=== PATIENT | male | born 1950 | race Caucasian/White ===

== ENCOUNTER 2017-10-30 18:10 | Inpatient (IN) | payer OTHER, MEDICARE ==
[~2017-10-30] VITALS: Ht 167.6 cm; Wt 84.8 kg
--- NOTE | 2017-10-30 19:11 | CT SCAN REPORT ---
EXAMINATION: CT HEAD WITHOUT CONTRAST CLINICAL INFORMATION: Confusion. COMPARISON: None. TECHNIQUE: Contiguous axial imaging was performed from the skull base to vertex without intravenous administration of contrast. DLP: 618 mGy-cm. FINDINGS: There is no intracranial hemorrhage, large infarction, or mass lesion. There is no extra-axial collection. The ventricles are normal in size and configuration without evidence of hydrocephalus. There is mild scattered hypoattenuation in the bilateral cerebral white matter, which is nonspecific but likely reflects small vessel disease. The paranasal sinuses are clear. The mastoids and middle ear cavities are clear. There are atherosclerotic calcification of the carotid siphons and vertebral arteries. IMPRESSION: No acute intracranial abnormality.
[2017-10-30 19:40] LABS: ABSOLUTE BASOPHIL COUNT 0 /CUMM (0.0-0.2); ABSOLUTE EOSINOPHIL COUNT 0.2 /CUMM (0.0-0.7); ABSOLUTE LYMPH COUNT 1.4 /CUMM (1.2-3.4); ABSOLUTE MONOCYTE COUNT 0.3 /CUMM (0.10-0.60); BASOPHIL % 0.1 % (0.0-2.0); EOSINOPHIL % 3.2 % (0-5); GRANULOCYTE % 67.1 % (42.2-75.2); HEMATOCRIT 40.6 % (42-52); MEAN CORPUSCULAR HGB 34.9 PG (27.0-31.0); MEAN CORPUSCULAR HGB CONC 34.2 G/DL (33.0-37.0); MEAN CORPUSCULAR VOLUME 101.9 FL (80.0-94.0); MEAN PLATELET VOLUME 7.8 FL (7.4-10.4); PLATELET COUNT 74 /CUMM (130-400); RBC DISTRIBUTION WIDTH 14.5 % (11.5-14.5); RED BLOOD CELL CT 3.98 /CUMM (4.70-6.10); WHITE BLOOD CELL COUNT 5.9 /CUMM (4.8-10.8)
--- NOTE | 2017-10-30 19:43 | RADIOLOGY REPORT ---
EXAMINATION: XR CHEST CLINICAL INFORMATION: Confusion COMPARISON: 07/02/2018 TECHNIQUE: 2 views of the chest were obtained. FINDINGS: Low lung volumes. There is diffuse prominence of the pulmonary interstitium. No focal consolidation or mass. No pleural effusion or pneumothorax. Heart size is upper limits of normal likely accentuated by low lung volumes. No acute osseous abnormality. IMPRESSION: There is new, diffuse interstitial prominence. This can be seen acutely with bronchiolitis or interstitial pneumonitis, chronically with chronic bronchitis or reactive airways disease.
[2017-10-30 19:49] LABS: PT 14.7 SEC (9.4-12.5); PTT 35 SEC (25-37)
--- NOTE | 2017-10-30 21:02 | History & Physical ---
Mony Chavira MD 10/30/172100: General Information and HPI MD Statement: I have seen and personally examined CORI WILSON and documented this H&P. The patient is a 67 year old M who presented with a patient stated chief complaint of altered mental status Source of Information: patient, old records Exam Limitations: no limitations History of Present Illness: This is a 67-year-old male with a past medical history significant for diabetes on metformin and glipizide, cirrhosis secondary to alcoholism with TIPS placed in 2011 secondary to portal hypertension with upper GI bleed, thrombocytopenia found at the same time, arthritis that is brought in from home by his for complaints of "acting funny". All history is taken from the patient himself who was a clear historian and remembered all preceding events. The patient states that he tried this morning to put tissue paper on his feet like socks. He also states that he tried eating a banana with the peel on. The patient states that he has never had anything like this before. The patient states that he feels like he has a "foggy brain". He also states that he went to his PCPs office today, Dr. Shane and she told him that his blood sugar was 415. He denies headache, vertigo, loss of consciousness, falls, seizure activity, tremors, vision change, hearing change, neurological deficits anywhere in the body, nausea, vomiting, fever, chills, abdominal pain, diarrhea or constipation, chest pain, shortness of breath. While the patient states that he has no dysuria or hematuria, he states that he thinks he is urinating less "probably because I'm drinking less". The patient states that he is on a protein restricted diet due to his liver problems but that a few days ago he ate a hamburger with cheese. The patient states that for his back pain he takes Aleve "some days of the week ". He denies any overt GI bleed. The patient states that he gets yearly ultrasounds of the liver to check if his shunt is still in the correct position. He last got it checked 6 months ago. He follows with sewer pipe layer helper Dr. العلي. The patient denies ever having had ascitic fluid drained from his abdomen, no gall bladder or pancreatic issues. The patient was evaluated for a heart murmur by Dr. العلي tomato paste maker in 2015. He found a normal size left ventricle, ejection fraction estimated at 60% , stage II diastolic dysfunction, no aortic stenosis. Patient has no other cardiac history. The patient used to heavily drink alcohol but stopped 10 years ago when the liver problems began. He used to smoke half a pack a day until 1996 but hasn't smoked since. The patient denies any drug use. Allergies/Medications Allergies: Coded Allergies: No Known Allergies (10/30/17) Past History Travel History Traveled to [place] past 21 day No Medical History Neurological: NONE EENT: NONE Cardiovascular: NONE Respiratory: NONE Gastrointestinal: NONE Hepatic: NONE, TIPS PROCEDURE,SHUNTS Renal: NONE Musculoskeletal: NONE Psychiatric: NONE Endocrine: diabetes Surgical History Surgical History: TIPS Past Family/Social History Family History Relations & Conditions if any *No pertinent family history Relation not specified Heart attack FATHER, Onset: 40-50. Psychosocial History Services at Home: None Functional Ability ADLs Independent: dressing, eating, toileting, bathing. Review of Systems Review of Systems Constitutional: Reports: no symptoms. EENTM: Reports: no symptoms. Cardiovascular: Reports: no symptoms. Respiratory: Reports: no symptoms. GI: Reports: no symptoms. Genitourinary: Reports: see HPI. Musculoskeletal: Reports: back pain. Skin: Reports: no symptoms. Neurological/Psychological: Reports: confusion. Hematologic/Endocrine: Reports: no symptoms. Immunologic/Allergic: Reports: no symptoms. All Other Systems: Reviewed and Negative Exam & Diagnostic Data Last 24 Hrs of Vital Signs/I&O Vital Signs Date Time Temp Pulse Resp B/P B/P Pulse O2 O2 Flow FiO2 Mean Ox Delivery Rate 10/30 2322 97.8 76 20 145/77 97 Room Air 10/30 2239 98.5 82 18 155/80 96 Room Air 10/30 2106 97.8 77 18 153/78 98 Room Air 10/30 1826 95.9 85 18 176/79 99 Room Air Intake & Output 10/31 0800 10/31 0000 10/30 1600 Intake Total 0 Output Total Balance 0 Intake, Oral 0 Patient 190 lb Weight Physical Exam General Appearance Alert, Oriented X3, Cooperative, No Acute Distress Skin No Rashes, No Breakdown, No Significant Lesion Skin Temp/Moisture Exam: Warm/Dry Sepsis Skin Exam (color): Normal for Ethnicity HEENT Atraumatic, PERRLA, EOMI, Mucous Membr. moist/pink Neck Supple, No JVD Cardiovascular Regular Rate, Normal S1, Normal S2, left lower sternal border murmur 4/6 systolic Lungs Clear to Auscultation, Normal Air Movement Abdomen Normal Bowel Sounds, Soft, No Tenderness, No Hepatospenomegaly, No Masses Neurological Normal Speech, Strength at 5/5 X4 Ext, Normal Tone, Sensation Intact, Cranial Nerves 3-12 NL, NO ASTERIXIS Extremities No Clubbing, No Cyanosis, No Edema, Normal Pulses, No Tenderness/ Swelling Vascular Normal Pulses Sepsis Peripheral Pulse Location: Radial Sepsis Peripheral Pulse Exam: Normal Sepsis Cap Refill Exam: <2 Sec Last 24 Hrs of Labs/Frac[place]: Laboratory Tests 10/31/17 0135: Troponin I < 0.01 10/30/17 194: Urine Opiates Screen < 100, Methadone Screen < 40, Barbiturate Screen < 60, Ur Phencyclidine Scrn < 6.00, Amphetamines Screen < 100, U Benzodiazepines Scrn < 85, Urine Cocaine Screen < 50, Urine Cannabis Screen < 5.00, Urine Color YEL, Urine Clarity HAZY H, Urine pH 6.0, Ur Specific [place] 1.015, Urine Protein NEG, Urine Ketones NEG, Urine Nitrite NEG, Urine Bilirubin NEG, Urine Urobilinogen 4.0 H, Ur Leukocyte Esterase NEG, Ur Microscopic SEDIMENT EXAMINED , Urine RBC RARE, Urine WBC RARE, Ur Epithelial Cells RARE, Urine Bacteria MANY H, Urine Mucus RARE, Urine Hemoglobin NEG, Urine Glucose >=1000 H 10/30/17 192: Anion Gap 9, Estimated GFR > 60, BUN/Creatinine Ratio 22.0, Glucose 233 H, Calcium 10.0, Total Bilirubin 3.8 H, AST 48, ALT 38, Alkaline Phosphatase 126, Ammonia 50 H, Troponin I < 0.01, Total Protein 7.5, Albumin 3.7, Globulin 3.8, Albumin/Globulin Ratio 1.0 L, Amylase 61, Lipase 615 H, PT 14.7 H, INR 1.34 H, APTT 35, CBC w Diff NO MAN DIFF REQ, RBC 3.98 L, MCV 101.9 H, MCH 34.9 H, MCHC 34.2, RDW 14.5, MPV 7.8, Gran % 67.1, Lymphocytes % 24.1, Monocytes % 5.5, Eosinophils % 3.2, Basophils % 0.1, Absolute Granulocytes 4.0, Absolute Lymphocytes 1.4, Absolute Monocytes 0.3, Absolute Eosinophils 0.2, Absolute Basophils 0 Assessment/Plan Assessment: This is a 67-year-old male with a past medical history significant for diabetes on metformin and glipizide, cirrhosis secondary to alcoholism with TIPS placed in 2011 secondary to portal hypertension with upper GI bleed, thrombocytopenia found at the same time, arthritis that is brought in from home by his for complaints of "acting funny". The patient has no complaints other than feeling "confused and woozy". He has never had anything happen like this before. The patient states that he is supposed to be on a protein restriction diet but that he ate a cheeseburger 2 days ago. In the ED: vitals were stable except for elevated but pressure to 176/79 which decreased to 145/77 after intake. Labs show WBC of 5.9, slightly low hemoglobin of 13.9, MCV 101.9, platelets 74, troponin negative, glucose 233, creatinine 0.5 , INR 1.34, total bilirubin 3.8, normal AST, ALT, alkaline phosphatase, amylase 61, lipase 6:15, ammonia level 50, urinalysis showing positive glucose. U tox was negative. EKG showed a rate of 72, QTC 465, no evidence of acute coronary syndrome, QRS of 140 that was increased from last EKG QRS 100. Chest x-ray showed diffuse interstitial prominence, evidence of bronchiolitis or interstitial pneumonitis, or bronchitis/reactive airway disease. CT head was normal. NIH stroke scale negative. Differential diagnosis and discussion: Causes of altered mental status include hyper or/hyponatremia, glucose derangements, hypercalcemia, hypo-/ hyperthyroidism, hypoxia or hypercapnia, uremia, drug intoxication, Warnicke's encephalopathy, CVA, structural lesions, infections, hypertensive encephalopathy and vasculitis, arrhythmias and hepatic encephalopathy. This patient has normal kidney function, no electrolyte abnormalities, and normal calcium level, no evidence of hypoxia or hypercapnia, no uremia, negative tox screen, no evidence of acute pathology. CT head, no evidence of infection, nonhypertensive blood pressure, no evidence of arrhythmia although widening of the QRS complex which could be suggestive of increasing left ventricular hypertrophy as a mild degree was found on his last echo in 2014. Warnicke's encephalopathy is probably unlikely as patient states that he has not drank in some time and has no ophthalmoplegia or ataxia. Most likely cause is hepatic encephalopathy as patient's ammonia level is high and he reports not adhering to his low protein diet. SBP is unlikely as a precipitant of the hepatic encephalopathy as no ascites is appreciated on exam, patient is afebrile, no abdominal tenderness, no nausea or vomiting. Patient's MELD score is 15 corresponding to 6% estimated 3 month mortality. The patient's lipase is elevated but is under 3 times the upper limit of normal, not significant at this time. Patient's [place] Criteria score is 1 at the time of interview, 2 taking into account HPI, for Grade I-II Hepatic Encephalopathy. Plan Hepatic encephalopathy secondary to alcoholic cirrhosis: -Neurochecks every 8 -Lactulose 20 g 3 times a day when necessary with a target of 2-3 bowel movements per day -Patient is deferring abdominal ultrasound (to check for TIPS positioning) for cost issues - was last checked 6 months ago -GI consult will be deferred as well for cost issues -Guaiac stools -Follow up LFTs and lipase -Give folate and B12 -Consider TFTs if encephalopathy returns or worsens QRS widening: In setting of supraventricular rhythm. No evidence of bundle branch block but could be left ventricular hypertrophy as mild hypertrophy was seen in 2015 echo. No hyperkalemia. No evidence of Ioohx-Impejlbjb-Uayou pattern. Repeat troponin at 1:30 AM was negative, EKG unchanged. -Follow up with EKG and troponin one last time at 7:30 AM Chronic medical problems -Insulin sliding scale and Accu-Cheks for diabetes, consider HbA1c Patient is full code DVT prophylaxis with Alps Patient is nothing by mouth As Ranked By This Provider Problem List: 1. Hepatic encephalopathy syndrome 2. Diabetes mellitus Core Measures/Misc (05/11) Acute Coronary Syndrome ACS Diagnosis: No Congestive Heart Failure Congestive Heart Failure Diagnosis No Cerebrovascular Accident CVA/TIA Diagnosis: No VTE (View Protocol) VTE Risk Factors No risk factors No Mechanical VTE Prophylaxis d/t N/A MechProphylax Ordered No VTE Pharm Prophylaxis d/t Other Sepsis (View protocol) Sepsis Present: No Gabi Tomlinson 10/30/17 4487: General Information and HPI Allergies/Medications Home Med list Cholecalciferol (Vitamin D3) (Vitamin D3) 5,000 UNIT TABLET 0.5 TAB PO DAILY SUPPLEMENT (Reported) Glipizide 5 MG TABLET 2 TAB PO QAM DM (Reported) Glipizide 5 MG TABLET 1 TAB PO QPM DM (Reported) Metformin HCl 500 MG TABLET 1 TAB PO BID DM (Reported) Naproxen Sodium (Aleve) 220 MG CAPSULE 1 CAP PO BID PRN PAIN/INFLAMMATION ( Reported) Resident Review Statement Resident Statement: examined this patient, discussed with legal summer intern, agreed with legal summer intern, discussed with family, reviewed EMR data (avail), discussed with nursing , reviewed images Other Findings: Mr. Wilson is a 67 yp man with PMHx. of alcoholic cirrhosis status post TIPS procedure years ago(more than 10 years), diabetes, thrombocytopenia, portal gastropathy, hiatal hernia, and external hemorrhoids presented to emergency department with a complaint of increase confusion. History obtained from the patient himself, he was able to answer our questions properly, he reports that today he was confused, doing unusual behavior, he reports that he is on diet restriction(low protein diet) the other day he had cheeseburger which he think precipitated all of his symptoms today, for TIPS he has annual checkup with an ultrasound to check if the shunt is working, last time it was checked was 6 months ago with no issue. He noticed that his urine is more concentrated and smell funny He denies any increase in abdominal distention, no nausea, vomiting, no chest pain, no shortness of breath, no fever, chills, no bowel habits. We'll admit the patient to general medicine floor, GI consult at a.m., he was received lactulose at a.m. Will continue lactulose with a target of 2-3 bowel movements per day, we discussed with the patient the need for an abdominal ultrasound and he said I don't want to pay more money for ultrasound, will repeat his labs tomorrow including LFT, and lipase. Insulin sliding scale, Accu -Chek, U tox, DVT prophylaxis SCD Lovenox, he is a full code Sorin Yan 10/31/17 0429: Attending MD Review Statement Attending Statement Attending MD Statement: examined this patient, discuss w/resident/PA/DAIRY LAB TECHNICIAN, agreed w/resident/PA/DAIRY LAB TECHNICIAN, reviewed EMR data (avail), reviewed images, amended to note Attending Assessment/Plan: CC: Confusion, abnormal behavior PMH: Decompensated alcoholic cirrhosis with history of variceal bleed S/P TIPS, ex-alcoholic, DM Patient was brought in ER by his for abnormal activity. According to her patient began to act abnormal this morning, wrapping up toilet paper around his feet, stating that "it's my underwear". Patient's thought it might be his low blood sugar, initially they did not check blood sugar at home but he ate breakfast. Later on when he went out to [facility] [place] and came back, he did not recall how to deal a banana, patient appeared more confused later in the day his blood sugar was checked it was 450. Patient denies any blood in the vomiting, black colored stool or blood in the stool, abdominal distention, fever, chills, urinary burning, URI symptoms, diarrhea, vomiting, chest pain, cough or expectoration. He ate a burger 2 days back which he was not supposed to eat as he is on low protein diet. He feels little foggy but otherwise no other complaints. He has been compliant with his glipizide and metformin at home. His cirrhosis has been under control, no symptoms so far after TIPS. Vitals: Afebrile, pulse 80s, RR 18, blood pressure 176/79, saturating 99% on room air On exam: A O 3, slow to respond, no asterixis, cooperative, no acute distress, neck supple, JVD normal, no lymphadenopathy, mucosa moist, no focal neurological deficit, no dependent edema, no obvious skin rashes or inflammation CVS: S1-S2, RRR, systolic murmur. RS: Clear to auscultate bilaterally. Abdomen: Soft, NT, ND , bowel sounds present. CXR: There is new, diffuse interstitial prominence. This can be seen acutely with bronchiolitis or interstitial pneumonitis, chronically with chronic bronchitis or reactive airways disease. CT head: No acute intracranial abnormality Assessment and plan 67-year-old male with past medical history significant for Decompensated alcoholic cirrhosis with history of variceal bleed S/P TIPS, ex-alcoholic, DM presented in ER for confusion and abnormal behavior as noticed by patient's . Other than having a burger 2 days back there is no apparent changes in patient's lifestyle or symptoms. Patient appears oriented in time place and person, recalls all minor details from the past, cognition appears intact, but slow to respond. He does not have asterixis on examination and other examination unremarkable. He has chronic thrombocytopenia with macrocytosis, elevated bilirubin, hyperglycemia and elevated ammonia. He appears to have hepatitic encephalopathy, new onset, never had similar symptoms in the past. Precipitating factor for encephalopathy is unclear, should rule out ascites, SBP, GI bleed or any other infection. Patient received a dose of lactulose in ER . Patient requests not to see sewer pipe layer helper while in hospital, he will follow-up outpatient. MELD score 15. + Hepatic encephalopathy + History of decompensated alcoholic cirrhosis S/P TIPS, no history of ascites, chronic thrombocytopenia, elevated bilirubin and INR + History of DM with hyperglycemia, previous hemoglobin A1c 9.25 February 2017 - Admit to general medicine - Continue by mouth lactulose, titrate according to bowel movement - Neurochecks - Abdominal ultrasound - Stool is guaiac - DVT prophylaxis with Alps only : Thrombocytopenia - Continue sliding scale insulin, hold oral hypoglycemic - Avoid NSAIDS - outpatient GI F/u
[2017-10-30] MEDS ORDERED: METFORMIN HCL500 M3 PO (21:19)
[2017-10-30] MEDS ORDERED: GLIPIZIDE5 M2 PO ×2 (21:19→21:59)
[2017-10-30] MEDS ORDERED: ALEVE220 M1 PO (21:20)
--- NOTE | 2017-10-30 21:53 | ED AMS/SEIZURE/WEAK/DIZZY ---
History of Present Illness General Chief Complaint: General Adult Stated Complaint: HEPATIC ENCEPHALOPATHY Source: patient, family, old records Exam Limitations: clinical condition, confusion Vital Signs & Intake/Output Vital Signs & Intake/Output Vital Signs Date Time Temp Pulse Resp B/P B/P Pulse O2 O2 Flow FiO2 Mean Ox Delivery Rate 10/30 2321 97.8 76 20 145/77 97 Room Air 10/309 98.5 82 18 155/80 96 Room Air 10/30 2106 97.8 77 18 153/78 98 Room Air 10/30 1826 95.9 85 18 176/79 99 Room Air Allergies Coded Allergies: No Known Allergies (10/30/17) Reconcile Medications Cholecalciferol (Vitamin D3) (Vitamin D3) 5,000 UNIT TABLET 0.5 TAB PO DAILY SUPPLEMENT (Reported) Glipizide 5 MG TABLET 2 TAB PO QAM DM (Reported) Glipizide 5 MG TABLET 1 TAB PO QPM DM (Reported) Metformin HCl 500 MG TABLET 1 TAB PO BID DM (Reported) Naproxen Sodium (Aleve) 220 MG CAPSULE 1 CAP PO BID PRN PAIN/INFLAMMATION ( Reported) Triage Note: PT FROM HOME C/O ABNORMAL ACTIVITY. PT TO ER WITH , PER , PT IS A DIABETIC AND AWOKE TODAY AROUND 0700 AMBULATED TO THE BATHROOM CAME BACK TO BED AND BEGAN TO ACT ABNORMAL BY WRAPPING TOILET PAPER AROUND HIS FEET STATING "ITS MY UNDERWEAR" PTS THOUGHT IT WAS A LOW BSG, NEVER CHECKED, THEN PT ATE BREAKFAST, WENT OUT TO SHOVEL, CAME BACK IN FOR LUNCH AND THEN FORGOT HOW TO OPEN A BANANA AND BEGAN TO EAT IT WITH THE PEEL ON. PT IS NEGATIVE FOR NIH STROKE SCALE. PT A&0X3. PTS STATES PT USED TO BE AN ALCOHOLIC AND HAD A TIPS PROCEDURE PLACING SHUNTS IN LIVER. PT DENIES CP, SOB. PT HAS CIRRHOSIS. VSS. SATYA Springer IN TRIAGE FOR EVAL. Triage Nurses Notes Reviewed? yes Onset: Morning Duration: hour(s):, constant, continues in ED Timing: recent history Severity: moderate No Modifying Factors: none HPI: 1 day prior to admission spouse reports patient began to have confused activity. The morning she found him sitting on the toilet wrapping toilet paper around his feet saying he was putting his underwear on. He then forgot several times about drinking his coffee and had to be reminded. At lunch he was attempting to eat a banana forgot how to open the skin and tried to bite through it. Later they were going out she told him to put his socks on and he put his feet into gloves. He denies fever chills nausea vomiting diarrhea abdominal pain chest pain cough shortness of breath headache dysuria rash bleeding. Past History Travel History Traveled to [place] past 21 day No Medical History Any Pertinent Medical History? see below for history Neurological: NONE EENT: NONE Cardiovascular: NONE Respiratory: NONE Gastrointestinal: NONE Hepatic: NONE, TIPS PROCEDURE,SHUNTS Renal: NONE Musculoskeletal: NONE Psychiatric: NONE Endocrine: diabetes Surgical History Surgical History: TIPS Psychosocial History Who do you live with Spouse Services at Home None What is your primary language Arabic Tobacco Use: Quit >30 days ago Family History Hx Contributory? No Review of Systems Review of Systems Constitutional: Reports: no symptoms. EENTM: Reports: no symptoms. Respiratory: Reports: no symptoms. Cardiovascular: Reports: no symptoms. GI: Reports: no symptoms. Genitourinary: Reports: no symptoms. Musculoskeletal: Reports: no symptoms. Skin: Reports: no symptoms. Neurological/Psychological: Reports: see HPI, cognitive dysfunction, confusion. Hematologic/Endocrine: Reports: no symptoms. Immunologic/Allergic: Reports: no symptoms. All Other Systems: Reviewed and Negative Physical Exam Physical Exam General Appearance: well developed/nourished, alert, awake, anxious, mild distress Head: atraumatic, normal appearance Eyes: Bilateral: normal appearance, PERRL, EOMI. Ears, Nose, Throat: normal pharynx, normal ENT inspection, hearing grossly normal Neck: normal inspection, supple, full range of motion, no midline tenderness Respiratory: normal breath sounds, chest non-tender, no respiratory distress, quiet respiration, lungs clear Cardiovascular: regular rate/rhythm, normal peripheral pulses, norml femoral pulses equa Peripheral Pulses: 4+ carotid (R), 4+ carotid (L) Gastrointestinal: normal bowel sounds, soft, non-tender, no organomegaly Back: normal inspection, normal range of motion Extremities: normal range of motion, no ligament instability Neurologic/Psych: no motor/sensory deficits, awake, alert, oriented x 3, normal gait, normal mood/affect, confused thoughts and forgetfulness Reflexes: 2+: bicep (R), bicep (L). Skin: intact, normal color, warm/dry Lymphatic: no anterior cervical mable Core Measures ACS in differential dx? No CVA/TIA Diagnosis No Sepsis Present: No Sepsis Focused Exam Completed? No Progress Differential Diagnosis: CVA/stroke, dehydration, drug intoxication, electrolyte imbalance, hypoglycemia, intracranial Hem. Plan of Care: Orders Procedure Date/time Status Nothing by Mouth 10/31 B Active CBC WITHOUT DIFFERENTIAL 10/31 599 Active BASIC ELECTROLYTES PLUS BUN&CR 10/31 599 Active Saline Lock 10/30 2117 Active Pathway - chart 10/30 2117 Active House Staff 10/30 2117 Active Add-on Test (ER Only) 10/30 2102 Active Patient Data 10/30 2050 Active OXYGEN SETUP (GEN) 10/30 2036 Active Saline Lock 10/30 2036 Active Admit to inpatient 10/30 2036 Active Vital Signs 10/30 2036 Active Activity/Ambulation 10/30 2036 Active Code Status 10/30 2036 Active Intake & Output 10/30 1950 Active URINE DRUGS OF ABUSE 10/30 194 Complete URINALYSIS 10/30 1832 Complete TROPONIN LEVEL 10/30 1832 Complete PARTIAL THROMBOPLASTIN TIME 10/30 1832 Complete PROTHROMBIN TIME 10/30 1832 Complete AMMONIA 10/30 1832 Complete LIPASE 10/30 1832 Complete COMPREHENSIVE METABOLIC PANEL 10/30 1832 Complete CBC WITHOUT DIFFERENTIAL 10/30 1832 Complete AMYLASE 10/30 1832 Complete EKG 10/30 1832 Active VTE Mechanical Prophylaxis 10/30 UNK Active Hemoccult 10/30 UNK Active FingerStick- Glucose 10/30 UNK Active Current Medications Sig/Sarah Start time Last Medication Dose Stop Time Status Admin Enoxaparin Sodium 40 MG DAILY 10/31 1000 AC (Lovenox) Insulin Aspart 0 TIDAC 10/31 0800 AC (NovoLOG) Lactulose 20 GM TID PRN 10/30 2130 AC (Enulose 20GM/30ML) Laboratory Tests 10/30/17 1942: Urine Opiates Screen < 100, Methadone Screen < 40, Barbiturate Screen < 60, Ur Phencyclidine Scrn < 6.00, Amphetamines Screen < 100, U Benzodiazepines Scrn < 85, Urine Cocaine Screen < 50, Urine Cannabis Screen < 5.00, Urine Color YEL, Urine Clarity HAZY H, Urine pH 6.0, Ur Specific [place] 1.015, Urine Protein NEG, Urine Ketones NEG, Urine Nitrite NEG, Urine Bilirubin NEG, Urine Urobilinogen 4.0 H, Ur Leukocyte Esterase NEG, Ur Microscopic SEDIMENT EXAMINED , Urine RBC RARE, Urine WBC RARE, Ur Epithelial Cells RARE, Urine Bacteria MANY H, Urine Mucus RARE, Urine Hemoglobin NEG, Urine Glucose >=1000 H 10/30/173: Anion Gap 9, Estimated GFR > 60, BUN/Creatinine Ratio 22.0, Glucose 233 H, Calcium 10.0, Total Bilirubin 3.8 H, AST 48, ALT 38, Alkaline Phosphatase 126, Ammonia 50 H, Troponin I < 0.01, Total Protein 7.5, Albumin 3.7, Globulin 3.8, Albumin/Globulin Ratio 1.0 L, Amylase 61, Lipase 615 H, PT 14.7 H, INR 1.34 H, APTT 35, CBC w Diff NO MAN DIFF REQ, RBC 3.98 L, MCV 101.9 H, MCH 34.9 H, MCHC 34.2, RDW 14.5, MPV 7.8, Gran % 67.1, Lymphocytes % 24.1, Monocytes % 5.5, Eosinophils % 3.2, Basophils % 0.1, Absolute Granulocytes 4.0, Absolute Lymphocytes 1.4, Absolute Monocytes 0.3, Absolute Eosinophils 0.2, Absolute Basophils 0 Diagnostic Imaging: Viewed by Me: Radiology Read, CT Scan. Discussed w/RAD: Radiology Read, CT Scan. Radiology Impression: no acute abnormality CXR Impression: There is new, diffuse interstitial prominence. This can be seen acutely with bronchiolitis or interstitial pneumonitis, chronically with chronic bronchitis or reactive airways disease. Initial ED EKG: normal axis, normal intervals, normal p-waves, normal QRS complex, normal sinus rhythm, no ST T wave changes Prior EKG: unchanged Rhythm Strip: normal sinus rhythm Departure Departure Disposition: STILL A PATIENT Condition: Stable Clinical Impression Primary Impression: Hepatic encephalopathy syndrome Referrals: Svitlana OLVERA,Cristina Dean (PCP/Family) Departure Forms: Customer Survey General Discharge Information Admission Note Spoke With: Sorin Yan MD Documentation of Exam: Documentation of any treatments & extenuating circumstances including Concerns Regarding Discharge (functional status, medication knowledge or non-compliance, living conditions, etc.) that warrant an admission rather than observation: Serial lab exam serial neurologic checks neurology evaluation GI evaluation medication adjustment continuing care discharge planning
[2017-10-30] MEDS ORDERED: VITAMIN D35000 UNI1 PO (22:01)
[2017-10-30 23:22] VITALS: BP 145/77
--- NOTE | 2017-10-31 04:31 | Admission Certification ---
Admission Certification Certification Statement - As attending physician, I certify that at the time of - admission, based on clinical presentation, severity of - symptoms, need for further diagnostic testing and - therapeutic interventions, and risk of adverse outcomes - without in-hospital treatment, in my clinical assessment, - this patient requires an acute hospital stay for a minimum - of two nights or longer. I have also considered psychsocial - factors such as support system, advanced age, financial - issues, cognitive issues, and failed out-patient treatments, - past re-admission history, safety of patient, and lack of - compliance as applicable. Specific rationale supporting this admission is: hepatic encephalopathy
[2017-10-31 06:44] VITALS: BP 132/74
--- NOTE | 2017-10-31 07:50 | PN- Housestaff ---
See Addendum Subjective Follow-up For: hepatic encephalopathy Subjective: No overnight events. He feels better than yesterday, with improved mentation. He says he has not had any alcohol in 12 years. He did have a cheeseburger recently but no other lifestlye changes. No recent illness. No abd pain, fever, chills, night sweats, CP, SOB. He was concerned about the cost of his stay here. Review of Systems Constitutional: Reports: no symptoms. EENTM: Reports: no symptoms. Cardiovascular: Reports: no symptoms. Respiratory: Reports: no symptoms. Gastrointestinal: Reports: see HPI. Genitourinary: Reports: no symptoms. Musculoskeletal: Reports: no symptoms. Skin: Reports: no symptoms. Neurological/Psychological: Reports: no symptoms. Hematologic/Endocrine: Reports: no symptoms. Immunologic/Allergic: Reports: no symptoms. Objective Last 24 Hrs of Vital Signs/I&O Vital Signs Date Time Temp Pulse Resp B/P B/P Pulse O2 O2 Flow FiO2 Mean Ox Delivery Rate 10/31 0644 97.7 79 18 132/74 97 Room Air 10/30 2322 97.8 76 20 145/77 97 Room Air 10/30 2239 98.5 82 18 155/80 96 Room Air 10/30 2106 97.8 77 18 153/78 98 Room Air 10/30 1826 95.9 85 18 176/79 99 Room Air Intake & Output 10/31 0800 10/31 0000 10/30 1600 Intake Total 250 0 Output Total Balance 250 0 Intake, IV 10 Intake, Oral 240 0 Patient 81.703 kg 86.183 kg Weight Physical Exam General Appearance: Alert, Oriented X3, Cooperative, No Acute Distress HEENT: no scleral icterus, no asterixis Cardiovascular: Regular Rate, Normal S1, Normal S2, systolic murmur Lungs: Clear to Auscultation Abdomen: Normal Bowel Sounds, Soft, No Tenderness Extremities: No Edema, Normal Pulses, No Tenderness/Swelling Current Medications: Current Medications Sig/Sarah Start time Last Medication Dose Route Stop Time Status Admin Enoxaparin Sodium 40 MG DAILY 10/31 1000 CAN SC Enoxaparin Sodium 0 .STK-MED ONE 10/30 2126 DC SC Insulin Aspart 0 TIDAC 11/01 799 AC SC Lactulose 20 GM ONCE ONE 10/30 2129 DC 10/30 PO 10/30 2130 2154 Lactulose 20 GM TID PRN 10/30 2129 AC PO Lactulose 0 .STK-MED ONE 10/30 2126 DC PO Magnesium Chloride 64 MG ONCE ONE 10/31 0745 UNVr PO 10/31 0746 Last 24 Hrs of Lab/[place]ac[place] Results Last 24 Hrs of Labs/Mics: Laboratory Tests 10/31/17 0135: Magnesium 1.5 L, Total Bilirubin Pending, Direct Bilirubin Pending, AST Pending , ALT Pending, Alkaline Phosphatase Pending, Troponin I < 0.01, Total Protein Pending, Albumin Pending 10/31/17 0130: Alpha Fetoprotein Pending 10/30/17 1942: Urine Opiates Screen < 100, Methadone Screen < 40, Barbiturate Screen < 60, Ur Phencyclidine Scrn < 6.00, Amphetamines Screen < 100, U Benzodiazepines Scrn < 85, Urine Cocaine Screen < 50, Urine Cannabis Screen < 5.00, Urine Color YEL, Urine Clarity HAZY H, Urine pH 6.0, Ur Specific [place] 1.015, Urine Protein NEG, Urine Ketones NEG, Urine Nitrite NEG, Urine Bilirubin NEG, Urine Urobilinogen 4.0 H, Ur Leukocyte Esterase NEG, Ur Microscopic SEDIMENT EXAMINED , Urine RBC RARE, Urine WBC RARE, Ur Epithelial Cells RARE, Urine Bacteria MANY H, Urine Mucus RARE, Urine Hemoglobin NEG, Urine Glucose >=1000 H 10/30/17 1923: Anion Gap 9, Estimated GFR > 60, BUN/Creatinine Ratio 22.0, Glucose 233 H, Calcium 10.0, Total Bilirubin 3.8 H, AST 48, ALT 38, Alkaline Phosphatase 126, Ammonia 50 H, Troponin I < 0.01, Total Protein 7.5, Albumin 3.7, Globulin 3.8, Albumin/Globulin Ratio 1.0 L, Amylase 61, Lipase 615 H, PT 14.7 H, INR 1.34 H, APTT 35, CBC w Diff NO MAN DIFF REQ, RBC 3.98 L, MCV 101.9 H, MCH 34.9 H, MCHC 34.2, RDW 14.5, MPV 7.8, Gran % 67.1, Lymphocytes % 24.1, Monocytes % 5.5, Eosinophils % 3.2, Basophils % 0.1, Absolute Granulocytes 4.0, Absolute Lymphocytes 1.4, Absolute Monocytes 0.3, Absolute Eosinophils 0.2, Absolute Basophils 0 Assessment/Plan Assessment: Mr. 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 Problem List: 1. Hepatic encephalopathy with portosystemic shunt 2. Alcoholic cirrhosis 3. 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 This may be mild hepatic encephalopathy with elevated ammonia versus other cause such as TIA. CT head was negative. Patient has not had any alcohol in 12 years. Other items on the differential for precipitating factors include increased protein intake, infection, and malfunction of portosystemic shunting. His mentation has improved overnight though he has not had a bowel movement yet. -Lactulose 20 g 3 times a day when necessary with a target of 2-3 bowel movements per day -Abdominal ultrasound -GI consult -Guaiac stools -Alpha-fetoprotein -Consider diagnostic paracentesis for SBP if ascites on ultrasound #QRS widening with new left bundle branch block: EKG and troponins 3 have been negative. Magnesium was a little low. -Replenish electrolytes -Avoid QRS widening medications -Cardiology consult #Chronic medical problems -Insulin sliding scale and Accu-Cheks for diabetes DVT prophylaxis with Alps Patient is nothing by mouth Full code Problem List: 1. Hepatic encephalopathy syndrome Pain Ratin Pain Location: jno Pain Goal: Remain pain free Pain Plan: see a/p Tomorrow's Labs & Rationales: bep, lft
[2017-10-31 09:08] LABS: ABSOLUTE BASOPHIL COUNT 0 /CUMM (0.0-0.2); ABSOLUTE EOSINOPHIL COUNT 0.2 /CUMM (0.0-0.7); ABSOLUTE GRANULOCYTE CT 2.9 /CUMM (1.4-6.5); ABSOLUTE LYMPH COUNT 1.6 /CUMM (1.2-3.4); ABSOLUTE MONOCYTE COUNT 0.3 /CUMM (0.10-0.60); BASOPHIL % 0.8 % (0.0-2.0); EOSINOPHIL % 4.7 % (0-5); GRANULOCYTE % 56.4 % (42.2-75.2); HEMATOCRIT 35.8 % (42-52); MEAN CORPUSCULAR HGB 35.6 PG (27.0-31.0); MEAN CORPUSCULAR HGB CONC 35.3 G/DL (33.0-37.0); MEAN CORPUSCULAR VOLUME 100.8 FL (80.0-94.0); MEAN PLATELET VOLUME 7.7 FL (7.4-10.4); RED BLOOD CELL CT 3.55 /CUMM (4.70-6.10); WHITE BLOOD CELL COUNT 5.1 /CUMM (4.8-10.8)
--- NOTE | 2017-10-31 10:20 | ULTRASOUND REPORT ---
EXAMINATION: US ABDOMEN COMPLETE CLINICAL INFORMATION: History of cirrhosis. Encephalopathy. Evaluate for ascites. COMPARISON: 11/26/2016. TECHNIQUE: Real-time imaging of the abdominal viscera. FINDINGS: PANCREAS: The visualized portions of the pancreas are normal. Pancreatic tail is obscured by bowel gas. ABDOMINAL AORTA: The proximal segment is normal in caliber. INFERIOR VENA CAVA: Visualized portions are normal. LIVER: Liver parenchyma remains diffusely hyperechoic and slightly heterogeneous from hepatocellular disease and/or steatosis. No evidence of liver mass or intrahepatic bile duct dilatation. Normal flow direction is identified within the main portal vein. The transhepatic portal systemic shunt is patent, has normal flow direction, and exhibits peak systolic velocity of 86 cm/sec. GALLBLADDER: Normal. The gallbladder is physiologically distended without evidence of stones, sludge, polyps, wall thickening or pericholecystic fluid. COMMON BILE DUCT: The common duct measures up to a maximum of 1.1 cm AP diameter, compared to a maximum of 1 cm on 11/26/2016. RIGHT KIDNEY: Normal. No hydronephrosis. No renal calculi or focal parenchymal lesions. The kidney measures 11.8 cm in maximum dimension. LEFT KIDNEY: Normal. No hydronephrosis. No renal calculi or focal parenchymal lesions. The kidney measures 12.8 cm in maximum dimension. SPLEEN: The large spleen measures up to 17.6 cm maximum dimension. FREE FLUID: None. IMPRESSION: 1. Hepatic cirrhosis and splenomegaly without ascites. 2. The transhepatic portosystemic shunt is patent.
[2017-10-31 11:09] LABS: PLATELET COUNT 65 /CUMM (130-400)
[2017-10-31 13:59] VITALS: BP 145/77
--- NOTE | 2017-10-31 15:13 | Cons- Cardiology ---
General Information and HPI Consulting Request Date of Consult: 10/31/17 Requested By: Joseline Lemus MD Reason for Consult: "New" intraventricular conduction delay (IVCD). Source of Information: patient, old records Exam Limitations: clinical condition History of Present Illness: Mr. Rakan Wilson is a 67-year-old male with a history of former tobacco use, obstructive sleep apnea, diabetes mellitus, heart murmur, strong family history for premature atherosclerotic disease (father succumbed to an OR at age 43 years), and former heavy EtOH use with hepatic cirrhosis s/p TIPS in 2011 secondary to portal hypertension with previous upper GI bleed secondary to esophageal varices and thrombocytopenia who presented to the ED 10/30/2017 after his found him to be "acting funny". On the morning of admission he reportedly tried putting tissue paper on his feet like socks, tried eating a banana with the peel still on, and attempted to put gloves on his feet. He denies similar episodes in the past, but did state that he feels like he has a "foggy brain". He also spoke to his primary care physician (Cristina Shane M.D.) on the day of admission was told his blood glucose level was 415 mg/dl. He denies recent trauma with head strike, headache, speech difficulty, visual changes, auditory changes, focal weakness/sensory loss, etc. Allergies/Medications Allergies: Coded Allergies: No Known Allergies (10/30/17) Home Med List: Cholecalciferol (Vitamin D3) (Vitamin D3) 5,000 UNIT TABLET 0.5 TAB PO DAILY SUPPLEMENT (Reported) Glipizide 5 MG TABLET 2 TAB PO QAM DM (Reported) Glipizide 5 MG TABLET 1 TAB PO QPM DM (Reported) Metformin HCl 500 MG TABLET 1 TAB PO BID DM (Reported) Naproxen Sodium (Aleve) 220 MG CAPSULE 1 CAP PO BID PRN PAIN/INFLAMMATION ( Reported) Review of Systems Review of Systems: 14 point system review was obtained and was noncontributory, other than for the fact the patient wears glasses. Past History Travel History Traveled to [place] past 21 day No Medical History Blood Transfusion Hx: Yes Neurological: NONE EENT: NONE Cardiovascular: NONE Respiratory: NONE Gastrointestinal: NONE Hepatic: NONE, TIPS PROCEDURE,SHUNTS Renal: NONE Musculoskeletal: NONE Psychiatric: NONE Endocrine: diabetes Surgical History Surgical History: TIPS Family History Relations & Conditions If Any: FATHER Heart attack, Onset: 40-50. Relation not specified for: *No pertinent family history Psychosocial History Services at Home: None Smoking Status: Never Smoked Functional Ability ADLs Independent: dressing, eating, toileting, bathing. Exam & Diagnostic Data Vital Signs and I&O Vital Signs Date Time Temp Pulse Resp B/P B/P Pulse O2 O2 Flow FiO2 Mean Ox Delivery Rate 10/31 1359 98.1 88 20 145/77 100 Room Air 10/31 0800 Room Air 10/31 0644 97.7 79 18 132/74 97 Room Air 10/30 2322 97.8 76 20 145/77 97 Room Air 10/30 2239 98.5 82 18 155/80 96 Room Air 10/30 2106 97.8 77 18 153/78 98 Room Air 10/30 1826 95.9 85 18 176/79 99 Room Air Intake & Output 10/31 1600 10/31 0810/31 0000 10/30 1600 10/30 0800 10/30 0000 Intake Total 560 250 0 Output Total 300 Balance 260 250 0 Intake, IV 10 Intake, Oral 560 240 0 Number 1 Bowel Movements Output, Urine 300 Patient 180 lb 190 lb Weight Physical Exam: Well-developed, well-nourished male in no acute distress. Vital signs: See above. HEENT: Normocephalic, atraumatic, EOMI, slightly dry mucous membranes. Neck: No JVD, no bruits. Lungs: Clear to auscultation bilaterally. Heart: S1, S2 with grade 2/6 systolic ejection type murmur best heard near the base. No gallop or rub appreciated. Abdomen: Soft, nontender, positive bowel sounds with splenomegaly. Extremities: No edema. Labs/Fracisco Results: Laboratory Tests 10/31 10/31 10/31 0726 0726 0135 Chemistry Sodium (137 - 145 mmol/L) 143 Cancelled Potassium (3.5 - 5.1 mmol/L) 3.0 L Cancelled Chloride (98 - 107 mmol/L) 106 Cancelled Carbon Dioxide (22 - 30 mmol/L) 26 Cancelled Anion Gap (5 - 16) 11 Cancelled BUN (9 - 20 mg/dL) 11 Cancelled Creatinine (0.7 - 1.2 mg/dL) 0.5 L Cancelled Estimated GFR (>60 ml/min) > 60 BUN/Creatinine Ratio (7 - 25 %) 22.0 Cancelled Phosphorus (2.5 - 4.5 mg/dL) 3.6 Magnesium (1.6 - 2.3 mg/dL) 1.5 L Total Bilirubin (0.2 - 1.3 mg/dL) 3.5 H Direct Bilirubin (< 0.4 mg/dL) 0.7 H AST (17 - 59 U/L) 36 ALT (21 - 72 U/L) 41 Alkaline Phosphatase (< 127 U/L) 108 Troponin I (<0.11 ng/ml) < 0.01 < 0.01 Total Protein (6.3 - 8.2 g/dL) 6.2 L Albumin (3.5 - 5.0 g/dL) 3.0 L TSH (0.270 - 4.200 uIU/mL) 3.260 Free T4 (0.78 - 2.44 ng/dL) 1.50 Hematology CBC w Diff NO MAN DIFF REQ WBC (4.8 - 10.8 /CUMM) 5.1 RBC (4.70 - 6.10 /CUMM) 3.55 L Hgb (14.0 - 18.0 G/DL) 12.6 L Hct (42 - 52 %) 35.8 L MCV (80.0 - 94.0 FL) 100.8 H MCH (27.0 - 31.0 PG) 35.6 H MCHC (33.0 - 37.0 G/DL) 35.3 RDW (11.5 - 14.5 %) 14.0 Plt Count (130 - 400 /CUMM) 65 L MPV (7.4 - 10.4 FL) 7.7 Gran % (42.2 - 75.2 %) 56.4 Lymphocytes % (20.5 - 51.1 %) 31.5 Monocytes % (1.7 - 9.3 %) 6.6 Eosinophils % (0 - 5 %) 4.7 Basophils % (0.0 - 2.0 %) 0.8 Absolute Granulocytes (1.4 - 6.5 /CUMM) 2.9 Absolute Lymphocytes (1.2 - 3.4 /CUMM) 1.6 Absolute Monocytes (0.10 - 0.60 /CUMM) 0.3 Absolute Eosinophils (0.0 - 0.7 /CUMM) 0.2 Absolute Basophils (0.0 - 0.2 /CUMM) 0 10/31 Chemistry Alpha Fetoprotein Pending Toxicology Urine Opiates Screen (>2000 NG/ML) < 100 Methadone Screen (>300 NG/ML) < 40 Barbiturate Screen (>200 NG/ML) < 60 Ur Phencyclidine Scrn (>25 NG/ML) < 6.00 Amphetamines Screen (>1000 NG/ML) < 100 U Benzodiazepines Scrn (>200 NG/ML) < 85 Urine Cocaine Screen (>300 NG/ML) < 50 Urine Cannabis Screen (>50 NG/ML) < 5.00 Urines Urine Color (YEL,AMB,STR) YEL Urine Clarity (CLEAR) HAZY H Urine pH (5.0 - 8.0) 6.0 Ur Specific [place] (1.001 - 1.035) 1.015 Urine Protein (NEG,<30 MG/DL) NEG Urine Ketones (NEG) NEG Urine Nitrite (NEG) NEG Urine Bilirubin (NEG) NEG Urine Urobilinogen (0.1 - 1.0 EU/dl) 4.0 H Ur Leukocyte Esterase (NEG) NEG Ur Microscopic SEDIMENT EXAMINED Urine RBC (0 - 5 /HPF) RARE Urine WBC (0 - 2 /HPF) RARE Ur Epithelial Cells (NONE,FEW) RARE Urine Bacteria (NEG/NONE) MANY H Urine Mucus (FEW,NONE) RARE Urine Hemoglobin (NEG) NEG Urine Glucose (N MG/DL) >=1000 H 10/30 1922 Chemistry Sodium (137 - 145 mmol/L) 140 Potassium (3.5 - 5.1 mmol/L) 4.2 Chloride (98 - 107 mmol/L) 102 Carbon Dioxide (22 - 30 mmol/L) 29 Anion Gap (5 - 16) 9 BUN (9 - 20 mg/dL) 11 Creatinine (0.7 - 1.2 mg/dL) 0.5 L Estimated GFR (>60 ml/min) > 60 BUN/Creatinine Ratio (7 - 25 %) 22.0 Glucose (65 - 99 mg/dL) 233 H Calcium (8.4 - 10.2 mg/dL) 10.0 Total Bilirubin (0.2 - 1.3 mg/dL) 3.8 H AST (17 - 59 U/L) 48 ALT (21 - 72 U/L) 38 Alkaline Phosphatase (< 127 U/L) 126 Ammonia (9 - 30 umol/L) 50 H Troponin I (<0.11 ng/ml) < 0.01 Total Protein (6.3 - 8.2 g/dL) 7.5 Albumin (3.5 - 5.0 g/dL) 3.7 Globulin (1.9 - 4.2 gm/dL) 3.8 Albumin/Globulin Ratio (1.1 - 2.2 %) 1.0 L Amylase (30 - 110 U/L) 61 Lipase (23 - 300 U/L) 615 H Coagulation PT (9.4 - 12.5 SEC) 14.7 H INR (0.90 - 1.17) 1.34 H APTT (25 - 37 SEC) 35 Hematology CBC w Diff NO MAN DIFF REQ WBC (4.8 - 10.8 /CUMM) 5.9 RBC (4.70 - 6.10 /CUMM) 3.98 L Hgb (14.0 - 18.0 G/DL) 13.9 L Hct (42 - 52 %) 40.6 L MCV (80.0 - 94.0 FL) 101.9 H MCH (27.0 - 31.0 PG) 34.9 H MCHC (33.0 - 37.0 G/DL) 34.2 RDW (11.5 - 14.5 %) 14.5 Plt Count (130 - 400 /CUMM) 74 L MPV (7.4 - 10.4 FL) 7.8 Gran % (42.2 - 75.2 %) 67.1 Lymphocytes % (20.5 - 51.1 %) 24.1 Monocytes % (1.7 - 9.3 %) 5.5 Eosinophils % (0 - 5 %) 3.2 Basophils % (0.0 - 2.0 %) 0.1 Absolute Granulocytes (1.4 - 6.5 /CUMM) 4.0 Absolute Lymphocytes (1.2 - 3.4 /CUMM) 1.4 Absolute Monocytes (0.10 - 0.60 /CUMM) 0.3 Absolute Eosinophils (0.0 - 0.7 /CUMM) 0.2 Absolute Basophils (0.0 - 0.2 /CUMM) 0 Diagnostic Data EKG Results 10/31/2017: Sinus rhythm, VPC, LAD, and LVH with IVCD and repolarization changes. More ectopy when compared to earlier tracing. CXR Results 10/30/2017: There is new, diffuse interstitial prominence. This can be seen acutely with bronchiolitis or interstitial pneumonitis, chronically with chronic bronchitis or reactive airways disease Other Results Abdominal ultrasound 10/31/2017: 1. Hepatic cirrhosis and splenomegaly without ascites. 2. The transhepatic portosystemic shunt is patent. Head CT 10/30/2017: No acute intracranial process. Assessment/Plan Assessment/Plan [id number] w/ hx of former tobacco use, BARRIE, DM, heart murmur, strong FH for premature CAD (father succumbed to an OR at 43 yrs) & former heavy EtOH use w/ hepatic cirrhosis s/p TIPS in 2011 2/2 portal HTN w/ previous UGI bleed 2/2 esophageal varices & thrombocytopenia who presented to the ED 10/30/2017 after his found him to be "acting funny", as described above, who we were asked to evaluate and manage in regard to his "new" IVCD. An IVCD refers to abnormalities in the intraventricular propagation of supraventricular impulses that give rise to changes in the duration and shape of the QRS complex. "IVCD" is used refer to QRS complexes that are wide, with a typical duration of greater than 0.11 seconds, but do not have the typical morphology of a right or left bundle-branch block, or that have features of both, as in this case. While IVCD's may occur in individuals without structural heart disease they're often a marker for underlying pathological states including: advanced coronary artery disease, long-standing hypertension, valvular heart disease, or cardiomyopathy. Extrinsic causes of intraventricular conduction delay include: Hyperkalemia and drug-induced (type I antiarrhythmic agents and related sodium channel blocking agents (tricyclic antidepressants and phenothiazines). Unfortunately, we do not know when Mr. Tapia IVCD developed. Recommendations: * Consider transfer to telemetry to exclude higher degrees of conduction disease. * Replete potassium and magnesium. * Contact Cristina Shane M.D.'s office and obtain most recent electrocardiograms to see if IVCD present. * Echocardiogram to assess the structural integrity of his heart, degree of aortic stenosis, etc. * Lyme titer. * Outpatient pharmacologic stress testing to exclude ischemia. * DVT prophylaxis. Further recommendations will follow, Thank you. Consult Acknowledgment - Thank you for your consult request.
--- NOTE | 2017-10-31 17:09 | Cons- Gastroenterology ---
General Information and HPI Consulting Request Date of Consult: 10/31/17 Requested By: Joseline Lemus MD Reason for Consult: Change in mental status Cirrhosis Source of Information: patient, family, old records Allergies/Medications Allergies: Coded Allergies: No Known Allergies (10/30/17) Home Med List: Cholecalciferol (Vitamin D3) (Vitamin D3) 5,000 UNIT TABLET 0.5 TAB PO DAILY SUPPLEMENT (Reported) Glipizide 5 MG TABLET 2 TAB PO QAM DM (Reported) Glipizide 5 MG TABLET 1 TAB PO QPM DM (Reported) Metformin HCl 500 MG TABLET 1 TAB PO BID DM (Reported) Naproxen Sodium (Aleve) 220 MG CAPSULE 1 CAP PO BID PRN PAIN/INFLAMMATION ( Reported) Current Medications: Current Medications Sig/Sarah Start time Last Medication Dose Route Stop Time Status Admin Enoxaparin Sodium 40 MG DAILY 10/31 1000 CAN SC Enoxaparin Sodium 0 .STK-MED ONE 10/30 2126 DC SC Insulin Aspart 0 TIDAC 11/01 799 AC 10/31 SC 1251 Lactulose 20 GM ONCE ONE 10/30 2129 DC 10/30 PO 10/30 2131 2154 Lactulose 20 GM TID PRN 10/30 2129 AC 10/31 PO 1101 Lactulose 0 .STK-MED ONE 10/30 2126 DC PO Magnesium Chloride 64 MG ONCE ONE 10/31 0745 DC 10/31 PO 10/31 0746 1101 Potassium Chloride 60 MEQ 0915 10/31 0815 DC 10/31 PO 10/31 0916 1059 Past History Travel History Traveled to [place] past 21 day No Medical History Blood Transfusion Hx: Yes Neurological: NONE EENT: NONE Cardiovascular: NONE Respiratory: NONE Gastrointestinal: NONE Hepatic: NONE, TIPS PROCEDURE,SHUNTS Renal: NONE Musculoskeletal: NONE Psychiatric: NONE Endocrine: diabetes Surgical History Surgical History: TIPS Family History Relations & Conditions If Any: FATHER Heart attack, Onset: 40-50. Relation not specified for: *No pertinent family history Psychosocial History Services at Home: None Smoking Status: Never Smoked Functional Ability ADLs Independent: dressing, eating, toileting, bathing. Exam & Diagnostic Data Vital Signs and I&O Vital Signs Date Time Temp Pulse Resp B/P B/P Pulse O2 O2 Flow FiO2 Mean Ox Delivery Rate 10/31 1359 98.1 88 20 145/77 100 Room Air 10/31 0800 Room Air 10/31 0644 97.7 79 18 132/74 97 Room Air 10/30 2322 97.8 76 20 145/77 97 Room Air 10/30 2239 98.5 82 18 155/80 96 Room Air 10/30 2106 97.8 77 18 153/78 98 Room Air 10/30 1826 95.9 85 18 176/79 99 Room Air Intake & Output 10/31 04010/30 04010/29 040 Intake Total 810 0 Output Total 300 Balance 510 0 Intake, IV 10 Intake, Oral 800 0 Number 1 Bowel Movements Output, Urine 300 Patient 180 lb 190 lb Weight Physical Exam: Slightly slow mentation, but alert and oriented. Anicteric. No ascites. No edema. No asterixis. Results Pertinent Lab Results: Laboratory Tests 10/31 10/31 10/31 0708 0769 0135 Chemistry Sodium (137 - 145 mmol/L) 143 Cancelled Potassium (3.5 - 5.1 mmol/L) 3.0 L Cancelled Chloride (98 - 107 mmol/L) 106 Cancelled Carbon Dioxide (22 - 30 mmol/L) 26 Cancelled Anion Gap (5 - 16) 11 Cancelled BUN (9 - 20 mg/dL) 11 Cancelled Creatinine (0.7 - 1.2 mg/dL) 0.5 L Cancelled Estimated GFR (>60 ml/min) > 60 BUN/Creatinine Ratio (7 - 25 %) 22.0 Cancelled Phosphorus (2.5 - 4.5 mg/dL) 3.6 Magnesium (1.6 - 2.3 mg/dL) 1.5 L Total Bilirubin (0.2 - 1.3 mg/dL) 3.5 H Direct Bilirubin (< 0.4 mg/dL) 0.7 H AST (17 - 59 U/L) 36 ALT (21 - 72 U/L) 41 Alkaline Phosphatase (< 127 U/L) 108 Troponin I (<0.11 ng/ml) < 0.01 < 0.01 Total Protein (6.3 - 8.2 g/dL) 6.2 L Albumin (3.5 - 5.0 g/dL) 3.0 L TSH (0.270 - 4.200 uIU/mL) 3.260 Free T4 (0.78 - 2.44 ng/dL) 1.50 Hematology CBC w Diff NO MAN DIFF REQ WBC (4.8 - 10.8 /CUMM) 5.1 RBC (4.70 - 6.10 /CUMM) 3.55 L Hgb (14.0 - 18.0 G/DL) 12.6 L Hct (42 - 52 %) 35.8 L MCV (80.0 - 94.0 FL) 100.8 H MCH (27.0 - 31.0 PG) 35.6 H MCHC (33.0 - 37.0 G/DL) 35.3 RDW (11.5 - 14.5 %) 14.0 Plt Count (130 - 400 /CUMM) 65 L MPV (7.4 - 10.4 FL) 7.7 Gran % (42.2 - 75.2 %) 56.4 Lymphocytes % (20.5 - 51.1 %) 31.5 Monocytes % (1.7 - 9.3 %) 6.6 Eosinophils % (0 - 5 %) 4.7 Basophils % (0.0 - 2.0 %) 0.8 Absolute Granulocytes (1.4 - 6.5 /CUMM) 2.9 Absolute Lymphocytes (1.2 - 3.4 /CUMM) 1.6 Absolute Monocytes (0.10 - 0.60 /CUMM) 0.3 Absolute Eosinophils (0.0 - 0.7 /CUMM) 0.2 Absolute Basophils (0.0 - 0.2 /CUMM) 0 10/31 10/30 0130 1942 Chemistry Alpha Fetoprotein Pending Toxicology Urine Opiates Screen (>2000 NG/ML) < 100 Methadone Screen (>300 NG/ML) < 40 Barbiturate Screen (>200 NG/ML) < 60 Ur Phencyclidine Scrn (>25 NG/ML) < 6.00 Amphetamines Screen (>1000 NG/ML) < 100 U Benzodiazepines Scrn (>200 NG/ML) < 85 Urine Cocaine Screen (>300 NG/ML) < 50 Urine Cannabis Screen (>50 NG/ML) < 5.00 Urines Urine Color (YEL,AMB,STR) YEL Urine Clarity (CLEAR) HAZY H Urine pH (5.0 - 8.0) 6.0 Ur Specific [place] (1.001 - 1.035) 1.015 Urine Protein (NEG,<30 MG/DL) NEG Urine Ketones (NEG) NEG Urine Nitrite (NEG) NEG Urine Bilirubin (NEG) NEG Urine Urobilinogen (0.1 - 1.0 EU/dl) 4.0 H Ur Leukocyte Esterase (NEG) NEG Ur Microscopic SEDIMENT EXAMINED Urine RBC (0 - 5 /HPF) RARE Urine WBC (0 - 2 /HPF) RARE Ur Epithelial Cells (NONE,FEW) RARE Urine Bacteria (NEG/NONE) MANY H Urine Mucus (FEW,NONE) RARE Urine Hemoglobin (NEG) NEG Urine Glucose (N MG/DL) >=1000 H 10/30 1922 Chemistry Sodium (137 - 145 mmol/L) 140 Potassium (3.5 - 5.1 mmol/L) 4.2 Chloride (98 - 107 mmol/L) 102 Carbon Dioxide (22 - 30 mmol/L) 29 Anion Gap (5 - 16) 9 BUN (9 - 20 mg/dL) 11 Creatinine (0.7 - 1.2 mg/dL) 0.5 L Estimated GFR (>60 ml/min) > 60 BUN/Creatinine Ratio (7 - 25 %) 22.0 Glucose (65 - 99 mg/dL) 233 H Calcium (8.4 - 10.2 mg/dL) 10.0 Total Bilirubin (0.2 - 1.3 mg/dL) 3.8 H AST (17 - 59 U/L) 48 ALT (21 - 72 U/L) 38 Alkaline Phosphatase (< 127 U/L) 126 Ammonia (9 - 30 umol/L) 50 H Troponin I (<0.11 ng/ml) < 0.01 Total Protein (6.3 - 8.2 g/dL) 7.5 Albumin (3.5 - 5.0 g/dL) 3.7 Globulin (1.9 - 4.2 gm/dL) 3.8 Albumin/Globulin Ratio (1.1 - 2.2 %) 1.0 L Amylase (30 - 110 U/L) 61 Lipase (23 - 300 U/L) 615 H Coagulation PT (9.4 - 12.5 SEC) 14.7 H INR (0.90 - 1.17) 1.34 H APTT (25 - 37 SEC) 35 Hematology CBC w Diff NO MAN DIFF REQ WBC (4.8 - 10.8 /CUMM) 5.9 RBC (4.70 - 6.10 /CUMM) 3.98 L Hgb (14.0 - 18.0 G/DL) 13.9 L Hct (42 - 52 %) 40.6 L MCV (80.0 - 94.0 FL) 101.9 H MCH (27.0 - 31.0 PG) 34.9 H MCHC (33.0 - 37.0 G/DL) 34.2 RDW (11.5 - 14.5 %) 14.5 Plt Count (130 - 400 /CUMM) 74 L MPV (7.4 - 10.4 FL) 7.8 Gran % (42.2 - 75.2 %) 67.1 Lymphocytes % (20.5 - 51.1 %) 24.1 Monocytes % (1.7 - 9.3 %) 5.5 Eosinophils % (0 - 5 %) 3.2 Basophils % (0.0 - 2.0 %) 0.1 Absolute Granulocytes (1.4 - 6.5 /CUMM) 4.0 Absolute Lymphocytes (1.2 - 3.4 /CUMM) 1.4 Absolute Monocytes (0.10 - 0.60 /CUMM) 0.3 Absolute Eosinophils (0.0 - 0.7 /CUMM) 0.2 Absolute Basophils (0.0 - 0.2 /CUMM) 0 Assessment/Plan Assessment/Recommendations: Alcoholic cirrhosis status post TIPS, without ascites or recurrent variceal bleeding. Possibility of underlying grade 1 (covert) encephalopathy (especially with indwelling shunt) with acute exacerbation now. No clear precipitating factors, such as infection, dehydration, electrolyte abnormality, bleeding etc. The patient has improved, and lactulose therapy has been initiated with one bowel movement today so far. Recommendations * Begin 1 g/kg protein diet. Please have dietitian see patient and in consultation, for teaching. * Continue lactulose, at 30 mL by mouth twice a day. Titrate to achieve 3 bowel movements per day. * Begin rifaximin 550 mg by mouth twice a day * I will follow-up in the morning, and help decide upon the patient's's disposition. Consult Acknowledgment - Thank you for your consult request.
[2017-10-31 22:36] VITALS: BP 122/70
[2017-11-01 07:20] VITALS: BP 146/74
--- NOTE | 2017-11-01 08:35 | PN- Housestaff ---
Vilma Bradford 11/01/17 0835: Subjective Follow-up For: hepatic encephalopathy- resolved New intraventricular conduction delay Subjective: No complaints or acute events overnight Review of Systems Constitutional: Reports: see HPI. Objective Last 24 Hrs of Vital Signs/I&O Vital Signs Date Time Temp Pulse Resp B/P B/P Pulse O2 O2 Flow FiO2 Mean Ox Delivery Rate 11/01 1600 82 132/74 03/ 1558 82 132/74 03 1329 98.9 99 18 150/70 96 Room Air 11/01 0800 Room Air 11/01 0720 98.7 95 16 146/74 95 Room Air 10/31 2236 99.0 74 18 122/70 96 Intake & Output 11/01 1600 11/01 0800 11/01 0000 Intake Total 1050 240 380 Output Total 751 Balance 1050 240 -371 Intake, IV 10 Intake, Oral 1050 240 370 Number 1 Bowel Movements Output, Stool 1 Output, Urine 750 Patient 189 lb 189 lb Weight Weight Bed scale Measurement Method Physical Exam General Appearance: Alert, Oriented X3, Cooperative, No Acute Distress Cardiovascular: 2/6 systolic murmur Lungs: Clear to Auscultation, Normal Air Movement Abdomen: Normal Bowel Sounds, Soft, No Tenderness Extremities: No Edema Current Medications: Current Medications Sig/Sarah Start time Last Medication Dose Route Stop Time Status Admin Insulin Aspart 0 TIDAC 10/31 0800 AC 11/01 SC 1654 Lactulose 20 GM TID PRN 10/30 2130 AC 11/01 PO 1654 Magnesium Oxide 400 MG ONE ONE 11/01 1045 DC 11/01 PO 11/01 1046 1035 Melatonin 5 MG ONCE ONE 11/01 2200 AC PO 11/01 2201 Metoprolol Tartrate 25 MG BID 11/01 1409 AC 11/01 PO 1600 Potassium Chloride 40 MEQ ONCE ONE 11/01 0915 DC 11/01 PO 11/01 0916 1035 Rifaximin 550 MG BID 10/31 2200 AC 11/01 PO 0843 Last 24 Hrs of Lab/Fracisco Results Last 24 Hrs of Labs/Mics: Laboratory Tests 11/01/17 0635: Anion Gap 10, Estimated GFR > 60, BUN/Creatinine Ratio 24.0, Magnesium 1.5 L, Total Bilirubin 6.9 H, Direct Bilirubin 0.5 H, AST 38, ALT 38, Alkaline Phosphatase 95, Total Protein 6.2 L, Albumin 2.9 L, Lyme Disease Antibody Pending Assessment/Plan Assessment: Mr. 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 Problem list: hepatic encephalopathy- resolved New intraventricular conduction delay Alcoholic cirrhosis Plan: Monitor potassium Monitor LFTs AFP pending ECHO pending T. bili 6.9<<3.5, DBili 0.5, Albumin 2.9<3 Cr 0.5 Continue lactulose GI recommendations appreciated Cardiology recommendations appreciated DVT prophylaxis with Alps Diabetic diet Full code Problem List: 1. Hepatic encephalopathy syndrome 2. ALCOHOLIC LIVER DISEASE Pain Ratin Pain Location: NA Pain Goal: Remain pain free Pain Plan: NA Tomorrow's Labs & Rationales: BEP for renal function LFTs Joseline Lemus MD 11/01/17 1334: Attending MD Review Statement Attending Statement Attending MD Statement: examined this patient, discuss w/resident/PA/DIGITAL FIELD SERVICE TECHNICIAN, agreed w/resident/PA/DIGITAL FIELD SERVICE TECHNICIAN, reviewed EMR data (avail) Attending Assessment/Plan: 67M PMH alcoholic cirrhosis (+PSE, +EV, -SBP) admitted with confusion and altered mental status in the setting of likely hepatic encephalopathy in decompensated alcoholic cirrhosis without ascites. He has elevated LFTs and ammonia. Of note, his EKG shows new LBBB from prior in 2011 without any symptoms of ACS. Patient is much more coherent and alert today. He remembers being confused and cannot explain why he was thinking that way. He has no complaints at this time. Per his at bedside, he looks much better and is much more coherent. This is close to his baseline. 1. Hepatic encephalopathy 2. Decompensated alcoholic cirrhosis without ascites 3. New LBBB 4. Hypokalemia 5. Hypomagnesemia Plan - Continue on telemetry - Continue Lactulose, titrate to 2-3 BM/day - Follow GI and cardiology recommendations - Echocardiogram - Replete magnesium and potassium - DVT PPx
--- NOTE | 2017-11-01 10:58 | PN- Cardiology ---
Subjective Subjective: * No complaints. * alcoholic cirrhosis s/p TIPS with mild encephalopathy * sinus rhythm * platelets 65K Objective Vital Signs and I&Os Vital Signs Date Time Temp Pulse Resp B/P B/P Pulse O2 O2 Flow FiO2 Mean Ox Delivery Rate 11/02 799 Room Air 11/01 0720 98.7 95 16 146/74 95 Room Air 10/31 2236 99.0 74 18 122/70 96 10/31 1359 98.1 88 20 145/77 100 Room Air Intake & Output 11/01 1600 11/01 0811/01 0000 10/31 1600 10/31 0000 Intake Total 240 380 560 250 0 Output Total 751 300 Balance 240 -371 260 250 0 Intake, IV 10 10 Intake, Oral 240 370 560 240 0 Number 1 Bowel Movements Output, Stool 1 Output, Urine 750 300 Patient 189 lb 180 lb 190 lb Weight Weight Bed scale Measurement Method Physical Exam: General: WD/WN male in NAD; alert and oriented x 3 Neck: no JVD Heart: RRR with 2/6 systolic murmur at the apex and LLSB Lungs: clear bilaterally Extremties: no edema Assessment/Plan Assessment/Plan * This patient is hypertensive with known LVH, cirrhosis and suspected coronary artery disease. Begin Metoprolol 25mg BID. His IVCD is likely due to LVH. * Hypertension and two heart murmurs are noted. Obtain an echocardiogram. * Maintain adequate serum electrolyte levels. Continue telemetry? Yes
[2017-11-01 13:29] VITALS: BP 150/70
--- NOTE | 2017-11-01 15:34 | PN- Gastroenterology ---
Assessment/Plan GI Assessment/Recommendations: Assessment/Recommendations: Alcoholic cirrhosis status post TIPS, without ascites or recurrent variceal bleeding. Possibility of underlying grade 1 (covert) encephalopathy (especially with indwelling shunt), presenting with with acute exacerbation. No clear precipitating factors, such as infection, dehydration, electrolyte abnormality, bleeding etc. Although he was markedly hyperglycemic, this does not generally lead to encephalopathy unless there is concurrent hyperosmolar state. The patient seems to be back to normal baseline. Recommendations * Appreciate nutrition consult. Continue low carbohydrate, low protein diet. There is less need for severe sodium restriction given his TIPS. Will benefit from outpatient nutrition follow-up. * Continue lactulose and rifaximin; these may be altered or stopped in the outpatient setting. * Better glycemic control and teaching. * The patient is appropriate for discharge from a GI standpoint, but defer to team/cardiology. I will follow him in my office. Subjective Subjective: The patient is alert and oriented with normal cognition. He denies fever, chest pain, abdominal pain, dysuria, cough. Objective Vital Signs and I&Os Vital Signs Date Time Temp Pulse Resp B/P B/P Pulse O2 O2 Flow FiO2 Mean Ox Delivery Rate 11/01 1329 98.9 99 18 150/70 96 Room Air 11/01 0800 Room Air 11/01 0720 98.7 95 16 146/74 95 Room Air 10/31 2236 99.0 74 18 122/70 96 Intake & Output 11/01 1600 11/01 0400 10/31 1600 10/31 0400 10/30 1600 10/30 0400 Intake Total 1290 380 810 0 Output Total 751 300 Balance 1290 -371 510 0 Intake, IV 10 10 Intake, Oral 1290 370 800 0 Number 1 1 Bowel Movements Output, Stool 1 Output, Urine 750 300 Patient 189 lb 189 lb 180 lb 190 lb Weight Weight Bed scale Measurement Method Physical Exam: Alert and oriented with normal cognition. Sclera icteric. No edema. Abdomen benign. Current Medications: Current Medications Sig/Sarah Start time Last Medication Dose Route Stop Time Status Admin Insulin Aspart 0 TIDAC 10/31 0800 AC 11/01 SC 1255 Lactulose 20 GM TID PRN 10/30 2130 AC 11/01 PO 1035 Magnesium Oxide 400 MG ONE ONE 11/01 1045 DC 11/01 PO 11/01 1046 1035 Melatonin 5 MG ONCE ONE 11/01 2199 AC PO 11/01 2200 Metoprolol Tartrate 25 MG BID 11/01 1409 AC PO Potassium Chloride 40 MEQ ONCE ONE 11/01 914 DC 11/01 PO 11/01 0816 1035 Rifaximin 550 MG BID 10/31 2199 AC 11/01 PO 0843 Results Pertinent Lab Results: Laboratory Tests 11/01 10/31 10/31 0635 0726 0726 Chemistry Sodium (137 - 145 mmol/L) 138 143 Cancelled Potassium (3.5 - 5.1 mmol/L) 3.5 3.0 L Cancelled Chloride (98 - 107 mmol/L) 106 106 Cancelled Carbon Dioxide (22 - 30 mmol/L) 23 26 Cancelled Anion Gap (5 - 16) 10 11 Cancelled BUN (9 - 20 mg/dL) 12 11 Cancelled Creatinine (0.7 - 1.2 mg/dL) 0.5 L 0.5 L Cancelled Estimated GFR (>60 ml/min) > 60 > 60 BUN/Creatinine Ratio (7 - 25 %) 24.0 22.0 Cancelled Phosphorus (2.5 - 4.5 mg/dL) 3.6 Magnesium (1.6 - 2.3 mg/dL) 1.5 L Total Bilirubin (0.2 - 1.3 mg/dL) 6.9 H Direct Bilirubin (< 0.4 mg/dL) 0.5 H AST (17 - 59 U/L) 38 ALT (21 - 72 U/L) 38 Alkaline Phosphatase (< 127 U/L) 95 Troponin I (<0.11 ng/ml) < 0.01 Total Protein (6.3 - 8.2 g/dL) 6.2 L Albumin (3.5 - 5.0 g/dL) 2.9 L TSH (0.270 - 4.200 uIU/mL) 3.260 Free T4 (0.78 - 2.44 ng/dL) 1.50 Hematology CBC w Diff NO MAN DIFF REQ WBC (4.8 - 10.8 /CUMM) 5.1 RBC (4.70 - 6.10 /CUMM) 3.55 L Hgb (14.0 - 18.0 G/DL) 12.6 L Hct (42 - 52 %) 35.8 L MCV (80.0 - 94.0 FL) 100.8 H MCH (27.0 - 31.0 PG) 35.6 H MCHC (33.0 - 37.0 G/DL) 35.3 RDW (11.5 - 14.5 %) 14.0 Plt Count (130 - 400 /CUMM) 65 L MPV (7.4 - 10.4 FL) 7.7 Gran % (42.2 - 75.2 %) 56.4 Lymphocytes % (20.5 - 51.1 %) 31.5 Monocytes % (1.7 - 9.3 %) 6.6 Eosinophils % (0 - 5 %) 4.7 Basophils % (0.0 - 2.0 %) 0.8 Absolute Granulocytes (1.4 - 6.5 /CUMM) 2.9 Absolute Lymphocytes (1.2 - 3.4 /CUMM) 1.6 Absolute Monocytes (0.10 - 0.60 /CUMM) 0.3 Absolute Eosinophils (0.0 - 0.7 /CUMM) 0.2 Absolute Basophils (0.0 - 0.2 /CUMM) 0 Serology Lyme Disease Antibody Pending 10/31 10/31 10/30 0135 0130 1942 Chemistry Magnesium (1.6 - 2.3 mg/dL) 1.5 L Total Bilirubin (0.2 - 1.3 mg/dL) 3.5 H Direct Bilirubin (< 0.4 mg/dL) 0.7 H AST (17 - 59 U/L) 36 ALT (21 - 72 U/L) 41 Alkaline Phosphatase (< 127 U/L) 108 Troponin I (<0.11 ng/ml) < 0.01 Total Protein (6.3 - 8.2 g/dL) 6.2 L Albumin (3.5 - 5.0 g/dL) 3.0 L Alpha Fetoprotein Pending Toxicology Urine Opiates Screen (>2000 NG/ML) < 100 Methadone Screen (>300 NG/ML) < 40 Barbiturate Screen (>200 NG/ML) < 60 Ur Phencyclidine Scrn (>25 NG/ML) < 6.00 Amphetamines Screen (>1000 NG/ML) < 100 U Benzodiazepines Scrn (>200 NG/ML) < 85 Urine Cocaine Screen (>300 NG/ML) < 50 Urine Cannabis Screen (>50 NG/ML) < 5.00 Urines Urine Color (YEL,AMB,STR) YEL Urine Clarity (CLEAR) HAZY H Urine pH (5.0 - 8.0) 6.0 Ur Specific [place] (1.001 - 1.035) 1.015 Urine Protein (NEG,<30 MG/DL) NEG Urine Ketones (NEG) NEG Urine Nitrite (NEG) NEG Urine Bilirubin (NEG) NEG Urine Urobilinogen (0.1 - 1.0 EU/dl) 4.0 H Ur Leukocyte Esterase (NEG) NEG Ur Microscopic SEDIMENT EXAMINED Urine RBC (0 - 5 /HPF) RARE Urine WBC (0 - 2 /HPF) RARE Ur Epithelial Cells (NONE,FEW) RARE Urine Bacteria (NEG/NONE) MANY H Urine Mucus (FEW,NONE) RARE Urine Hemoglobin (NEG) NEG Urine Glucose (N MG/DL) >=1000 H 10/30 1922 Chemistry Sodium (137 - 145 mmol/L) 140 Potassium (3.5 - 5.1 mmol/L) 4.2 Chloride (98 - 107 mmol/L) 102 Carbon Dioxide (22 - 30 mmol/L) 29 Anion Gap (5 - 16) 9 BUN (9 - 20 mg/dL) 11 Creatinine (0.7 - 1.2 mg/dL) 0.5 L Estimated GFR (>60 ml/min) > 60 BUN/Creatinine Ratio (7 - 25 %) 22.0 Glucose (65 - 99 mg/dL) 233 H Calcium (8.4 - 10.2 mg/dL) 10.0 Total Bilirubin (0.2 - 1.3 mg/dL) 3.8 H AST (17 - 59 U/L) 48 ALT (21 - 72 U/L) 38 Alkaline Phosphatase (< 127 U/L) 126 Ammonia (9 - 30 umol/L) 50 H Troponin I (<0.11 ng/ml) < 0.01 Total Protein (6.3 - 8.2 g/dL) 7.5 Albumin (3.5 - 5.0 g/dL) 3.7 Globulin (1.9 - 4.2 gm/dL) 3.8 Albumin/Globulin Ratio (1.1 - 2.2 %) 1.0 L Amylase (30 - 110 U/L) 61 Lipase (23 - 300 U/L) 615 H Coagulation PT (9.4 - 12.5 SEC) 14.7 H INR (0.90 - 1.17) 1.34 H APTT (25 - 37 SEC) 35 Hematology CBC w Diff NO MAN DIFF REQ WBC (4.8 - 10.8 /CUMM) 5.9 RBC (4.70 - 6.10 /CUMM) 3.98 L Hgb (14.0 - 18.0 G/DL) 13.9 L Hct (42 - 52 %) 40.6 L MCV (80.0 - 94.0 FL) 101.9 H MCH (27.0 - 31.0 PG) 34.9 H MCHC (33.0 - 37.0 G/DL) 34.2 RDW (11.5 - 14.5 %) 14.5 Plt Count (130 - 400 /CUMM) 74 L MPV (7.4 - 10.4 FL) 7.8 Gran % (42.2 - 75.2 %) 67.1 Lymphocytes % (20.5 - 51.1 %) 24.1 Monocytes % (1.7 - 9.3 %) 5.5 Eosinophils % (0 - 5 %) 3.2 Basophils % (0.0 - 2.0 %) 0.1 Absolute Granulocytes (1.4 - 6.5 /CUMM) 4.0 Absolute Lymphocytes (1.2 - 3.4 /CUMM) 1.4 Absolute Monocytes (0.10 - 0.60 /CUMM) 0.3 Absolute Eosinophils (0.0 - 0.7 /CUMM) 0.2 Absolute Basophils (0.0 - 0.2 /CUMM) 0
[2017-11-01 15:58] VITALS: BP 132/74
[2017-11-02 06:49] VITALS: BP 138/76
[2017-11-02 08:15] VITALS: BP 140/70
[2017-11-02 08:47] VITALS: BP 140/70
--- NOTE | 2017-11-02 09:25 | PN- Housestaff ---
Jasson OLVERA,Ruth 11/02/17 0925: Subjective Follow-up For: Hepatic cirrhosis Hepatic encephalopathy - resolved New intraventricular conduction delay Tele-Events Since Last Visit: Normal sinus rhythm Heart rate 74-83 Subjective: Patient resting comfortably, denies any active complaints. Review of Systems Constitutional: Reports: no symptoms. EENTM: Reports: no symptoms. Cardiovascular: Reports: no symptoms. Respiratory: Reports: no symptoms. Gastrointestinal: Reports: no symptoms. Genitourinary: Reports: no symptoms. Musculoskeletal: Reports: no symptoms. Skin: Reports: no symptoms. Neurological/Psychological: Reports: no symptoms. Hematologic/Endocrine: Reports: no symptoms. Immunologic/Allergic: Reports: no symptoms. Objective Last 24 Hrs of Vital Signs/I&O Vital Signs Date Time Temp Pulse Resp B/P B/P Pulse O2 O2 Flow FiO2 Mean Ox Delivery Rate 11/02 0847 76 140/70 11/02 0815 76 140/70 11/02 0800 Room Air 11/02 0649 98.6 76 18 138/76 96 Room Air 11/01 2316 98.7 66 16 98 Room Air 11/01 2145 75 142/66 Intake & Output 11/02 1600 11/02 0800 11/02 0000 Intake Total 1152 360 912 Output Total Balance 1152 360 912 Intake, Oral 1152 360 912 Patient 187 lb Weight Physical Exam General Appearance: Alert, Oriented X3, Cooperative, No Acute Distress Skin: No Rashes, No Breakdown Cardiovascular: Regular Rate, Normal S1, Normal S2, systolic murmur Lungs: Normal Air Movement Abdomen: Normal Bowel Sounds, Soft, No Tenderness Extremities: No Clubbing, No Cyanosis, No Edema Current Medications: Current Medications Sig/Sarah Start time Last Medication Dose Route Stop Time Status Admin Calcium Carbonate 500 MG ONCE ONE 11/02 0615 DC 11/02 PO 11/02 0616 0618 Insulin Aspart 0 TIDAC 10/31 0800 DCD 11/02 SC 1259 Lactulose 20 GM TID PRN 10/30 213 DCD 11/02 PO 0847 Magnesium Oxide 400 MG BID 11/02 1000 DCD 11/02 PO 11/02 2200 0847 Melatonin 5 MG ONCE ONE 11/01 2200 DC 11/01 PO 11/01 2200 213 Metoprolol Tartrate 25 MG BID 11/01 1409 DCD 11/02 PO 0847 Potassium Chloride 20 MEQ BID 11/02 1000 CAN PO 11/02 2200 Potassium Chloride 20 MEQ BID 11/02 1000 DCD 11/02 PO 11/02 2200 0847 Rifaximin 550 MG BID 10/31 2200 DCD 11/02 PO 0847 Last 24 Hrs of Lab/Fracisco Results Last 24 Hrs of Labs/Mics: Laboratory Tests 11/02/17 0650: Anion Gap 9, Estimated GFR > 60, BUN/Creatinine Ratio 22.0, Total Bilirubin 12.3 H, Direct Bilirubin 1.6 H, AST 45, ALT 31, Alkaline Phosphatase 109, Total Protein 7.3, Albumin 3.5 Assessment/Plan Assessment: Mr. 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 Problem list: hepatic encephalopathy- resolved New intraventricular conduction delay Alcoholic cirrhosis Plan: - Patient will be discharged home on lactulose 3 times a day(titrated to 2-3 bowel movements per day), rifaximin for 15 g twice a day and metoprolol 25 mg twice a day. Patient's rifaximin is not covered by his insurance but is willing to pay out of pocket for now and will follow-up with his primary care physician when he needs the refill. - AFP pending - Echocardiogram will be done as an outpatient. - GI recommendations appreciated - Cardiology recommendations appreciated; IVCD likely due to left ventricular hypertrophy. DVT prophylaxis with Alps Full code Problem List: 1. Hepatic encephalopathy syndrome 2. BBB (bundle branch block) Pain Ratin Pain Location: None Pain Goal: Remain pain free Pain Plan: None Tomorrow's Labs & Rationales: None Joseline Lemus MD 11/02/17 1312: Attending MD Review Statement Attending Statement Attending MD Statement: examined this patient, discuss w/resident/PA/ROCK DUSTER, agreed w/resident/PA/ROCK DUSTER, reviewed EMR data (avail) Attending Assessment/Plan: 67M PMH alcoholic cirrhosis (+PSE, +EV, -SBP) admitted with confusion and altered mental status in the setting of likely hepatic encephalopathy in decompensated alcoholic cirrhosis without ascites. He has elevated LFTs and ammonia. Of note, his EKG shows new LBBB from prior in 2011 without any symptoms of ACS. Patient is much more coherent and alert today. He remembers being confused and cannot explain why he was thinking that way. He has no complaints at this time. Per his at bedside, he looks much better and is much more coherent. This is close to his baseline. 1. Hepatic encephalopathy 2. Decompensated alcoholic cirrhosis without ascites 3. New LBBB 4. Hypokalemia 5. Hypomagnesemia Plan - Discharge home - Outpatient echocardiogram - Continue Lactulose and Rifaximin, titrate to 2-3 BM/day - Outpatient GI and cardiology - Echocardiogram as outpatient
--- NOTE | 2017-11-02 10:23 | PN- Cardiology ---
Subjective Subjective: * No complaints. * alcoholic cirrhosis s/p TIPS with mild encephalopathy * sinus rhythm * platelets 65K Objective Vital Signs and I&Os Vital Signs Date Time Temp Pulse Resp B/P B/P Pulse O2 O2 Flow FiO2 Mean Ox Delivery Rate 11/02 0847 76 140/70 11/02 0815 76 140/70 11/02 0800 Room Air 11/02 0649 98.6 76 18 138/76 96 Room Air 11/01 2316 98.7 66 16 98 Room Air 11/01 2145 75 142/66 11/01 1600 82 132/74 11/01 1558 82 132/74 11/01 1329 98.9 99 18 150/70 96 Room Air Intake & Output 11/02 1600 11/02 0800 11/02 0000 11/01 1600 11/01 0800 11/01 0000 Intake Total 139 258 1237 240 380 Output Total 751 Balance 836 546 0914 240 -371 Intake, IV 10 Intake, Oral 295 736 3584 240 370 Number 1 Bowel Movements Output, Stool 1 Output, Urine 750 Patient 187 lb 189 lb 189 lb Weight Weight Bed scale Measurement Method Physical Exam: General: WD/WN male in NAD; alert and oriented x 3 Neck: no JVD Heart: RRR with 2/6 systolic murmur at the apex and LLSB Lungs: clear bilaterally Extremties: no edema Assessment/Plan Assessment/Plan * This patient now has a better controlled blood pressure on Metoprolol which should be continued at 25mg BID due to his historyof cirrhosis, suspected coronary artery disease and LVH on echo. His IVCD is likely due to LVH. * Hypertension and two heart murmurs are noted. Obtain an echocardiogram. * Maintain adequate serum electrolyte levels. Continue telemetry? No
[2017-11-02] MEDS ORDERED: XIFAXAN550 M1 PO ×2 (13:09→13:20)
[2017-11-02] MEDS ORDERED: LACTULOSE20 GM/30 M PO ×2 (13:09→13:20)
[2017-11-02] MEDS ORDERED: METOPROLOL TART25 M1 PO ×2 (13:09→13:20)
--- NOTE | 2017-11-02 13:15 | Patient Discharge Instructions ---
Discharge Instructions General Discharge Information You were seen/treated for: Hepatic encephalopathy- resolved New intraventricular conduction delay Special Instructions: Please follow up with your PCP within a week after discharge. Please follow up with your Design Drafter Chief within a week after discharge. Please follow up with your Biztalk Architect within a week after discharge. You will need an echocardiogram as an outpatient that can be arranged at that time. Diet Continue normal diet: Yes Activity Full Activity/No Limits: Yes Acute Coronary Syndrome Inclusion Criteria At DC or during hospital stay patient has or had the following: ACS DIAGNOSIS No Discharge Core Measures Meds if any: Prescribed or Continued at Discharge Meds if any: NOT Prescribed or Continued at Discharge Congestive Heart Failure Inclusion Criteria At DC or during hospital stay patient has or had the following: CHF DIAGNOSIS No Discharge Core Measures Meds if any: Prescribed or Continued at Discharge Meds if any: NOT Prescribed or Continued at Discharge Cerebrovascular accident Inclusion Criteria At DC or during hospital stay patient has or had the following: CVA/TIA Diagnosis No Discharge Core Measures Meds if any: Prescribed or Continued at Discharge Meds if any: NOT Prescribed or Continued at Discharge Venous thromboembolism Inclusion Criteria VTE Diagnosis No VTE Type NONE VTE Confirmed by (Test) NONE Discharge Core Measures - Per Current guidelines, there needs to be overlap - treatment for the first 5 days of Warfarin therapy. - If discharged on Warfarin prior to 5 days of - overlap therapy, the patient will need to be - assessed for post discharge needs including - *Post discharge parental anticoagulation - *Warfarin and/or parental anticoagulation education - *Follow up date to check INR post discharge At least 5 days overlap therapy as Inpatient No Meds if any: Prescribed or Continued at Discharge Note: Overlap Therapy is Warfarin and Anticoagulant Meds if any: NOT Prescribed or Continued at Discharge
--- NOTE | 2017-11-02 15:51 | PN- Gastroenterology ---
Assessment/Plan GI Assessment/Recommendations: 1. Hepatic encephalopathy. No overt signs. 2. Worsening indirect hyperbilirubinemia. Differential diagnosis includes hemolysis, hematoma Recommendations * Check CBC, LDH, * Consider CT of the abdomen and pelvis * Continue lactulose and rifaximin Subjective Subjective: Without new complaints. Continues to be alert and oriented. Objective Vital Signs and I&Os Vital Signs Date Time Temp Pulse Resp B/P B/P Pulse O2 O2 Flow FiO2 Mean Ox Delivery Rate 11/02 0847 76 140/70 11/02 0815 76 140/70 11/02 0800 Room Air 11/02 0649 98.6 76 18 138/76 96 Room Air 11/01 2316 98.7 66 16 98 Room Air 11/01 2145 75 142/66 11/01 1600 82 132/74 11/01 1558 82 132/74 Intake & Output 11/02 1600 11/02 0400 11/01 1600 11/01 0400 10/31 1600 10/31 0400 Intake Total 7642 550 2862 380 810 0 Output Total 751 300 Balance 5269 292 5372 -371 510 0 Intake, IV 10 10 Intake, Oral 8232 794 2102 370 800 0 Number 1 1 Bowel Movements Output, Stool 1 Output, Urine 750 300 Patient 187 lb 189 lb 189 lb 180 lb 190 lb Weight Weight Bed scale Measurement Method Physical Exam: Alert and oriented. No asterixis. Sclera anicteric. Abdomen soft, nontender. No edema. Results Pertinent Lab Results: Laboratory Tests 11/02 11/01 10/31 0650 0635 0726 Chemistry Sodium (137 - 145 mmol/L) 134 L 138 143 Potassium (3.5 - 5.1 mmol/L) 4.4 3.5 3.0 L Chloride (98 - 107 mmol/L) 103 106 106 Carbon Dioxide (22 - 30 mmol/L) 22 23 26 Anion Gap (5 - 16) 9 10 11 BUN (9 - 20 mg/dL) 11 12 11 Creatinine (0.7 - 1.2 mg/dL) 0.5 L 0.5 L 0.5 L Estimated GFR (>60 ml/min) > 60 > 60 > 60 BUN/Creatinine Ratio (7 - 25 %) 22.0 24.0 22.0 Phosphorus (2.5 - 4.5 mg/dL) 3.6 Magnesium (1.6 - 2.3 mg/dL) 1.5 L Total Bilirubin (0.2 - 1.3 mg/dL) 12.3 H 6.9 H Direct Bilirubin (< 0.4 mg/dL) 1.6 H 0.5 H AST (17 - 59 U/L) 45 38 ALT (21 - 72 U/L) 31 38 Alkaline Phosphatase (< 127 U/L) 109 95 Troponin I (<0.11 ng/ml) < 0.01 Total Protein (6.3 - 8.2 g/dL) 7.3 6.2 L Albumin (3.5 - 5.0 g/dL) 3.5 2.9 L TSH (0.270 - 4.200 uIU/mL) 3.260 Free T4 (0.78 - 2.44 ng/dL) 1.50 Serology Lyme Disease Antibody Pending 10/31 10/31 10/31 0726 0135 0130 Chemistry Sodium Cancelled Potassium Cancelled Chloride Cancelled Carbon Dioxide Cancelled Anion Gap Cancelled BUN Cancelled Creatinine Cancelled BUN/Creatinine Ratio Cancelled Magnesium (1.6 - 2.3 mg/dL) 1.5 L Total Bilirubin (0.2 - 1.3 mg/dL) 3.5 H Direct Bilirubin (< 0.4 mg/dL) 0.7 H AST (17 - 59 U/L) 36 ALT (21 - 72 U/L) 41 Alkaline Phosphatase (< 127 U/L) 108 Troponin I (<0.11 ng/ml) < 0.01 Total Protein (6.3 - 8.2 g/dL) 6.2 L Albumin (3.5 - 5.0 g/dL) 3.0 L Alpha Fetoprotein Pending Hematology CBC w Diff NO MAN DIFF REQ WBC (4.8 - 10.8 /CUMM) 5.1 RBC (4.70 - 6.10 /CUMM) 3.55 L Hgb (14.0 - 18.0 G/DL) 12.6 L Hct (42 - 52 %) 35.8 L MCV (80.0 - 94.0 FL) 100.8 H MCH (27.0 - 31.0 PG) 35.6 H MCHC (33.0 - 37.0 G/DL) 35.3 RDW (11.5 - 14.5 %) 14.0 Plt Count (130 - 400 /CUMM) 65 L MPV (7.4 - 10.4 FL) 7.7 Gran % (42.2 - 75.2 %) 56.4 Lymphocytes % (20.5 - 51.1 %) 31.5 Monocytes % (1.7 - 9.3 %) 6.6 Eosinophils % (0 - 5 %) 4.7 Basophils % (0.0 - 2.0 %) 0.8 Absolute Granulocytes (1.4 - 6.5 /CUMM) 2.9 Absolute Lymphocytes (1.2 - 3.4 /CUMM) 1.6 Absolute Monocytes (0.10 - 0.60 /CUMM) 0.3 Absolute Eosinophils (0.0 - 0.7 /CUMM) 0.2 Absolute Basophils (0.0 - 0.2 /CUMM) 0 10/30 Chemistry Sodium (137 - 145 mmol/L) 140 Potassium (3.5 - 5.1 mmol/L) 4.2 Chloride (98 - 107 mmol/L) 102 Carbon Dioxide (22 - 30 mmol/L) 29 Anion Gap (5 - 16) 9 BUN (9 - 20 mg/dL) 11 Creatinine (0.7 - 1.2 mg/dL) 0.5 L Estimated GFR (>60 ml/min) > 60 BUN/Creatinine Ratio (7 - 25 %) 22.0 Glucose (65 - 99 mg/dL) 233 H Calcium (8.4 - 10.2 mg/dL) 10.0 Total Bilirubin (0.2 - 1.3 mg/dL) 3.8 H AST (17 - 59 U/L) 48 ALT (21 - 72 U/L) 38 Alkaline Phosphatase (< 127 U/L) 126 Ammonia (9 - 30 umol/L) 50 H Troponin I (<0.11 ng/ml) < 0.01 Total Protein (6.3 - 8.2 g/dL) 7.5 Albumin (3.5 - 5.0 g/dL) 3.7 Globulin (1.9 - 4.2 gm/dL) 3.8 Albumin/Globulin Ratio (1.1 - 2.2 %) 1.0 L Amylase (30 - 110 U/L) 61 Lipase (23 - 300 U/L) 615 H Coagulation PT (9.4 - 12.5 SEC) 14.7 H INR (0.90 - 1.17) 1.34 H APTT (25 - 37 SEC) 35 Hematology CBC w Diff NO MAN DIFF REQ WBC (4.8 - 10.8 /CUMM) 5.9 RBC (4.70 - 6.10 /CUMM) 3.98 L Hgb (14.0 - 18.0 G/DL) 13.9 L Hct (42 - 52 %) 40.6 L MCV (80.0 - 94.0 FL) 101.9 H MCH (27.0 - 31.0 PG) 34.9 H MCHC (33.0 - 37.0 G/DL) 34.2 RDW (11.5 - 14.5 %) 14.5 Plt Count (130 - 400 /CUMM) 74 L MPV (7.4 - 10.4 FL) 7.8 Gran % (42.2 - 75.2 %) 67.1 Lymphocytes % (20.5 - 51.1 %) 24.1 Monocytes % (1.7 - 9.3 %) 5.5 Eosinophils % (0 - 5 %) 3.2 Basophils % (0.0 - 2.0 %) 0.1 Absolute Granulocytes (1.4 - 6.5 /CUMM) 4.0 Absolute Lymphocytes (1.2 - 3.4 /CUMM) 1.4 Absolute Monocytes (0.10 - 0.60 /CUMM) 0.3 Absolute Eosinophils (0.0 - 0.7 /CUMM) 0.2 Absolute Basophils (0.0 - 0.2 /CUMM) 0 Toxicology Urine Opiates Screen (>2000 NG/ML) < 100 Methadone Screen (>300 NG/ML) < 40 Barbiturate Screen (>200 NG/ML) < 60 Ur Phencyclidine Scrn (>25 NG/ML) < 6.00 Amphetamines Screen (>1000 NG/ML) < 100 U Benzodiazepines Scrn (>200 NG/ML) < 85 Urine Cocaine Screen (>300 NG/ML) < 50 Urine Cannabis Screen (>50 NG/ML) < 5.00 Urines Urine Color (YEL,AMB,STR) YEL Urine Clarity (CLEAR) HAZY H Urine pH (5.0 - 8.0) 6.0 Ur Specific [place] (1.001 - 1.035) 1.015 Urine Protein (NEG,<30 MG/DL) NEG Urine Ketones (NEG) NEG Urine Nitrite (NEG) NEG Urine Bilirubin (NEG) NEG Urine Urobilinogen (0.1 - 1.0 EU/dl) 4.0 H Ur Leukocyte Esterase (NEG) NEG Ur Microscopic SEDIMENT EXAMINED Urine RBC (0 - 5 /HPF) RARE Urine WBC (0 - 2 /HPF) RARE Ur Epithelial Cells (NONE,FEW) RARE Urine Bacteria (NEG/NONE) MANY H Urine Mucus (FEW,NONE) RARE Urine Hemoglobin (NEG) NEG Urine Glucose (N MG/DL) >=1000 H
== END 2017-11-02 14:30 | DRG 443 ==
LOC: ERH 18:10 → ERHI 20:37 → 2NA 20:37 → ENRESERV 21:11 → ENTRNSPT 22:39 → EDTRNSPTSTS 22:41 → 2NA 22:56 → CMPTRNSPT 23:30 → 2NA 10-31 09:01 → 1NO 10-31 17:39 → ENPENDDIS 11-02 13:20 → ENTRNSPT 11-02 14:11 → EDTRNSPT 11-02 14:26 → EDTRNSPTSTS 11-02 14:26 → 1NO 11-02 14:30 → CMPTRNSPT 11-02 14:35
PROVIDERS: Physician Assistant Medical; Student in an Organized Health Care Education/Training Program
DX: K72.90 Hepatic failure, unspecified without coma (principal); E83.42 Hypomagnesemia; K70.30 Alcoholic cirrhosis of liver without ascites; E11.9 Type 2 diabetes mellitus without complications; Z79.84 Long term (current) use of oral hypoglycemic drugs; I44.7 Left bundle-branch block, unspecified; E87.6 Hypokalemia; I10 Essential (primary) hypertension; M19.90 Unspecified osteoarthritis, unspecified site; E80.6 Other disorders of bilirubin metabolism
CPT/HCPCS: 1NSP; 2NASP; 86618; 36592; 71046; 80307; 81001; 82436; 93005; 93010; J1650